=== PATIENT | female | born 1975 | race Hispanic/Latino ===

== ENCOUNTER → 2018-02-02 | Outpatient (CLI) | payer BC ==
--- NOTE | 2018-02-02 09:19 | Diagnostic Imaging Report ---
PROCEDURE:X-RAY ABDOMEN - KUB COMPARISON:Abdomen one view 08/12/2017. INDICATIONS:CALCULUS OF KIDNEY FINDINGS: There is a non-obstructed bowel-gas pattern. There are no calcifications projected over the renal shadows, expected course of the ureters or bladder. Phleboliths are present in the pelvis. There are no acute osseous abnormalities. The lung bases are clear. CONCLUSION: No acute radiographic abnormality. Dictated by: Andrea Call M.D. on 02/02/2018 at 9:21 Electronically approved by: Andrea Call M.D. on 02/02/2018 at 9:21
== END ==
LOC: RAD 08:42
PROVIDERS: ATTEND Urology
DX: N20.0 Calculus of kidney (principal)
CPT/HCPCS: 74018

== ENCOUNTER → 2018-08-24 | Outpatient (CLI) | payer BC ==
--- NOTE | 2018-08-24 14:28 | Diagnostic Imaging Report ---
PROCEDURE:X-RAY ABDOMEN - KUB COMPARISON:Patients [facility], DX, ABDOMEN-1VIEW (KUB), 02/02/2018, 8:53. INDICATIONS:CALCULUS OF KIDNEY FINDINGS: There are no dilated loops of bowel to suggest obstruction. There are no masses or abnormal calcifications. Pelvic phleboliths are present. There is no evidence of free air. No acute osseous abnormalities are present. The L5 vertebral body is a transitional vertebrae with partial sacralization. CONCLUSION: No acute abdominal abnormality. Henry Bernal D.O. Dictated by: Henry Bernal D.O. on 08/24/2018 at 14:38 Electronically approved by: Henry Bernal D.O. on 08/24/2018 at 14:38
== END ==
LOC: RAD 10:08
PROVIDERS: ATTEND Urology
DX: N20.0 Calculus of kidney (principal)
CPT/HCPCS: 74018

== ENCOUNTER → 2019-02-02 | Outpatient (CLI) | payer BC ==
--- NOTE | 2019-02-02 10:30 | Diagnostic Imaging Report ---
Exam: KUB -one view Clinical History: Renal calculus. Comparison: None. Findings: The upper abdomen is partially excluded from the [id number]. Nonobstructive bowel gas pattern. Bowel gas partially obscures visualization of the kidneys. There are hyperdensities measuring 5 mm and 7 mm overlying the left lower kidney. No evidence of calcification along the right kidney or expected course of the ureters. Likely bilateral calcified phleboliths. No acute bony abnormality. Impression: Hyperdensities measuring 5 mm and 7 mm overlying the left lower kidney may represent enteric contents or stone. Signed by: Dr. Esvin White MD on 02/02/2019 10:26 AM
== END ==
LOC: RAD 09:29
PROVIDERS: ATTEND Urology
DX: N20.0 Calculus of kidney (principal)
CPT/HCPCS: 74018

== ENCOUNTER → 2019-02-16 | Outpatient (CLI) | payer BC ==
--- NOTE | 2019-02-16 13:25 | Diagnostic Imaging Report ---
CT of the abdomen and pelvis, without contrast, 02/16/2019. History: Question left renal calculus on prior x-ray. Comparison: X-ray 02/02/2019. Technique: Multidetector CT scanning of the abdomen and pelvis was performed from the level of the lung bases to the inferior pubic rami without intravenous or oral contrast. Coronal and sagittal multiplanar reformations were obtained. RADIATION DOSE: Total DLP: 261 mGy*cm Dose modulation, iterative reconstruction, and/or weight based adjustment of the mA/kV was utilized to reduce the radiation dose to as low as reasonably achievable. Discussion: Examination is limited without contrast. Lung bases: No visualized abnormalities. Abdomen: The liver, biliary tree, spleen, pancreas, adrenal glands, and kidneys are unremarkable. There is no evidence of renal calculus, hydronephrosis, or perinephric fat stranding involving either kidney. The ureters are nondilated. Cholecystectomy clips are present. The abdominal aorta is within normal limits. There is no bowel dilatation. There is no evidence of adenopathy or free fluid. Pelvis: The bladder is distended. The uterus and adnexa are difficult to visualize but generally unremarkable. Calcified fluids are present bilaterally. There is no evidence of free fluid or adenopathy. Bones and soft tissues: No abnormality. IMPRESSION: No evidence of renal calculus. X-ray findings likely represented overlying material. Urinary bladder distention. Otherwise unremarkable noncontrast exam. Signed by: Anthony Hanna on 02/16/2019 1:22 PM
== END ==
LOC: CT 09:44
PROVIDERS: ATTEND Urology
DX: N20.0 Calculus of kidney (principal)
CPT/HCPCS: 74176

== ENCOUNTER → 2019-08-02 | Outpatient (CLI) | payer BC ==
--- NOTE | 2019-08-02 11:06 | Diagnostic Imaging Report ---
Exam: KUB - 2 views Indication: Renal calculi Comparison: Abdomen and pelvis CT of 02/16/2019, KUB of 02/02/2019 Findings: No radiographically apparent renal calculi. Phleboliths in the pelvis. Nonobstructive bowel gas pattern. No free air. Status post cholecystectomy. The osseous structures appear unremarkable. Impression: No radiographically apparent renal calculi. Signed by: Amie Camejo MD on 08/02/2019 11:03 AM
== END ==
LOC: RAD 10:10
PROVIDERS: ATTEND Urology
DX: N20.0 Calculus of kidney (principal)
CPT/HCPCS: 74018

== ENCOUNTER → 2020-07-17 | Outpatient (CLI) | payer BC | LOC: RAD 13:08 | PROVIDERS: ATTEND Urology | DX: N20.0 Calculus of kidney (principal) | CPT/HCPCS: 74018 ==

== ENCOUNTER → 2021-02-12 | Outpatient (CLI) | payer BC | LOC: RAD 10:46 | PROVIDERS: ATTEND Urology | DX: N20.0 Calculus of kidney (principal) | CPT/HCPCS: 74018 ==

== ENCOUNTER → 2021-07-23 | Outpatient (CLI) | payer BC | LOC: RAD 10:12 | PROVIDERS: ATTEND Urology | DX: N20.0 Calculus of kidney (principal) | CPT/HCPCS: 74018 ==

== ENCOUNTER → 2022-01-20 | Outpatient (CLI) | payer BC | LOC: RAD 11:44 | PROVIDERS: ATTEND Urology | DX: N20.0 Calculus of kidney (principal) | CPT/HCPCS: 74018 ==